=== PATIENT | male | born 1980 | race African-American/Black ===

== ENCOUNTER 2016-08-28 13:56 | Emergency (ER) | payer OTHER ==
[2016-08-28] MEDS ORDERED: BOOSTRIX VACCINE ONE (14:23)
[2016-08-28] MEDS ORDERED: XYLOCAINE-MPF 1% INJ ONE (15:16)
--- NOTE | 2016-08-28 15:25 | PROVIDER DOCUMENTATION ---
HPI-Musculoskeletal Pain/Inj - GENERAL Chief Complaint: Laceration[s] Stated Complaint: lac to finger Time Seen by Provider: 08/28/16 14:17 Source: patient, police - HX OF PRESENT ILLNESS-MUSKULOSKELTAL Nature of Presenting Problem: 35 y/o BM c/o laceration to R middle digit x 2 hours. Pt states [place] the [place] and caught his finger in the door hinge, causing a laceration just proximal the PIP. States mild pain to the area. Unsure when last tetanus vaccine was. Bleeding controlled. Review of Systems - Adult - REVIEW OF SYSTEMS - ADULT Constitutional: reports: no symptoms reported. denies: chills, fever Eyes: reports: no symptoms reported. denies: blurred vision, double vision Ears, Nose, Mouth & Throat: reports: no symptoms reported. denies: ear pain, nose pain Cardiovascular: reports: no symptoms reported. denies: chest pain, palpitations Respiratory: reports: no symptoms reported. denies: dyspnea on exertion, shortness of breath Gastrointestinal: reports: no symptoms reported. denies: nausea, vomiting Genitourinary: reports: no symptoms reported. denies: dysuria, frequency Musculoskeletal: reports: no symptoms reported. denies: joint pain, joint swelling Integumentary: reports: see HPI, other. denies: nail changes, rash Neurological: reports: no symptoms reported. denies: numbness, paresthesia Psychiatric: reports: no symptoms reported Endocrine: reports: no symptoms reported. denies: cold intolerance, heat intolerance Hematologic/Lymphatic: reports: no symptoms reported. denies: easy bruising, prolonged bleeding Allergic/Immunologic: reports: no symptoms reported All Other Systems: Reviewed and Negative Past History - Adult - PAST MEDICAL HISTORY-ADULT Review of Records: reports: Nursing Assessment Review, Medications Reviewed Major Childhood Illnesses: reports: denies history Cardiovascular: reports: denies history Respiratory: reports: denies history Gastrointestinal: reports: denies history Obstetrical/Gynecological: reports: denies history Genitourinary: reports: denies history Musculoskeletal: reports: denies history Neurological: reports: denies history Endocrine/Immune: reports: denies history Other Conditions: reports: denies history - PRIOR SURGERIES/PROCEDURES Surgical/Procedure History: reports: none - PRIOR HOSPITALIZATIONS Prior Hospitalizations: reports: none - IMMUNIZATION STATUS Childhood Immunizations: See Nurse Assessment Flu Vaccine: See Nurse Assessment - FAMILY HISTORY Family History: reviewed, not pertinent - SOCIAL HISTORY Smoking: cigarettes, less than 1 pack/day Provider spent 3-5 mins advising pt. on dangers of tobacco.: Discussed manners to quit use, and f/u contacts for add'l counseling. Physical Exam-Injury Related - Physical Exam-Injury Related Initial Vital Signs Reviewed: Yes General Appearance: alert Eyes: pink conjunctivae Head, Ears, Nose, Mouth & Throat: normocephalic/atraumatic, moist mucous membranes Neck: normal inspection Respiratory: no respiratory distress Cardiovascular: normal peripheral pulses, regular rate, rhythm. negative: bradycardia, tachycardia Peripheral Pulses: radial (R): 2+, radial (L): 2+ Back Exam: normal inspection Extremity: normal gait Integumentary: normal color, warm/dry, blanching, laceration (2.5 cm) Neurologic: negative: aphasia Psych/Mental Status: normal mood/affect, normal thought content, normal thought process, oriented x 3 Progress - XRAY 1 XRAY: Right XRAY Study: other (fingers) Impression: See EMR Report (NAD, per Dr. Thurman) Procedures - LACERATION/WOUND REPAIR/FB Right Finger Wound Length: 2.5 Wound's Depth, Shape: superficial Wound Explored/Foreign Body: no foreign body found Irrigated with Saline?: Yes Prepped with: Chlorhexidine Anesthetic: 1%, Lidocaine/Xylocaine Volume of Anesthetic (ml's): 5 (MC block) Wound Repaired with: Sutures Suture Size/Type: 4.0, Non-Absorbable, Nylon Number of Sutures: 4 Layer Closure?: No Sterile Dressing Applied?: Yes Splint Applied?: No Sling Applied?: No Post Procedure Neurovascular Exam: Intact Procedure Comment: Pt tolerated well Departure - Departure Time of Disposition Order: 15:55 DIAGNOSIS: Laceration Disposition: HOME 01 Certified Medical Emergency: Emergent Condition: Stable Additional Instructions: Keep wound clean and dry. Tylenol or motrin for pain. Return in 10-14 days for recheck. ED Follow Up Instructions: You have been treated by a care provider in the Emergency Department. These instructions are being provided to you so you can have an understanding of how to care for yourself upon discharge. Upon discharge from the Emergency Department, you are responsible for making arrangements for follow-up care by a physician of your choice. Take all prescribed medications as directed. Return to the Emergency Department immediately for any new or worsening symptoms. You may call the Physician Referral phone number at [phone] to obtain a list of Physicians who are taking new patients. Referrals: None,PCP [Primary Care Provider] - Forms: Return to School/Parent Work Instructions: Laceration Care, Adult Attestation - Physician/ EJ Attestation Patient care was provided by Advanced Practice Provider:: Yes Advanced Practice Provider:: Odalys Merritt Advanced Practice Provider documentation review:: The Mid-level provider documentation, treatment plan and medical decision making was reviewed by the physician who agrees with all treatment and medical decision making by the MLP.
[2016-08-28 16:55] VITALS: BP 151/96
--- NOTE | 2016-08-28 18:06 | Diag Imaging Result Document ---
PROCEDURE NAME: FINGER(S)-RIGHT - 08/28/2016 RIGHT MIDDLE FINGER 3 VIEWS: FINDINGS: There is no evidence of fracture or dislocation.
== END 2016-08-28 16:54 | disposition home or self-care (01) ==
LOC: ED 13:56
DX: S61.212A Laceration without foreign body of right middle finger without damage to nail, initial encounter (principal); W23.0XXA Caught, crushed, jammed, or pinched between moving objects, initial encounter; F17.210 Nicotine dependence, cigarettes, uncomplicated; Z71.6 Tobacco abuse counseling; Z23 Encounter for immunization
CPT/HCPCS: 73140; 90715